=== PATIENT | female | born 1980 | race Two or more races ===

== ENCOUNTER → 2021-04-03 | Emergency (ER) | payer BC ==
[~2021-04-03] VITALS: Ht 167.6 cm; Wt 63.5 kg
[~2021-04-03] MED LIST: CEPH500C2 PO; CETI-90 PO; PRED50TA PO; predniSONE 20 MG TABLET ONE; predniSONE 50 MG TABLET PO ONE
[2021-04-03 12:23] VITALS: BP 110/69
--- NOTE | 2021-04-03 12:41 | NUR ---
SEEN AND EXAMINED BY .
--- NOTE | 2021-04-03 12:56 | NUR ---
Patient discharged to home in stable condition. Written and verbal after care instructions given. Patient verbalizes understanding of instruction.
--- NOTE | 2021-04-03 12:57 | NUR ---
[facility]
== END | disposition home or self-care (01) ==
LOC: ER 13:26
DX: T63.481A Toxic effect of venom of other arthropod, accidental (unintentional), initial encounter (principal); L50.9 Urticaria, unspecified; L03.115 Cellulitis of right lower limb; Y92.89 Other specified places as the place of occurrence of the external cause
CPT/HCPCS: 99283; J7512

== ENCOUNTER 2021-05-05 20:18 | Emergency (ER) | payer BC ==
[~2021-05-05] VITALS: Ht 170.2 cm; Wt 54.4 kg
[~2021-05-05 20:18] MED LIST changes: -predniSONE 20 MG TABLET ONE; -predniSONE 50 MG TABLET PO ONE
[2021-05-05] MEDS ORDERED: MECLIZINE HCL 25 MG TABLET ONE (20:57)
[2021-05-05] MEDS ORDERED: KETOROLAC TROMETHAMINE INJ 30 MG/ML VIAL ONE (20:57)
[2021-05-05] MEDS ORDERED: MECLIZINE HCL 12.5 MG TABLET PO ONE (21:00)
[2021-05-05] MEDS ORDERED: KETOROLAC TROMETHAMINE INJ 30 MG/ML VIAL IV ONE (21:00)
[2021-05-05] MEDS ORDERED: IV NS 0.9% 1,000 ML BAG IV ONE (21:00)
--- NOTE | 2021-05-05 21:00 | NUR ---
BLOOD TAKEN AND SENT TO LAB
[2021-05-05 21:40] LABS: BILIRUBIN,URINE NEGATIVE (NEGATIVE); COLOR,URINE YELLOW (YELLOW); LEUKOCYTE ESTERASE ,URINE TRACE (NEGATIVE); NITRITE, URINE NEGATIVE (NEGATIVE); PH,URINE 8.5 (5.0-8.0); PROTEIN,URINE NEGATIVE (NEGATIVE); UGLUCOSE NEGATIVE (NEGATIVE); UROBILINOGEN,URINE 0.2 EU/dL (0.2)
[2021-05-05 22:03] LABS: RBC,URINE 0-2 /HPF (0-2); WBC,URINE 0-2 /HPF (0-3)
[2021-05-05 22:04] LABS: BACTERIA,URINE Few /HPF (None Seen); SQUAMOUS EPITHELIAL CELL,UR Few /HPF (None Seen); URINE AMORPHOUS PHOSPHATES Few /HPF (None Seen)
[2021-05-05 22:15] LABS: BASOPHILS # (AUTO) 0.1 K/uL (0.0-0.2); BASOPHILS % (AUTO) 1.3 % (0.0-2.0); CALCIUM, SERUM 8.8 mg/dL (8.5-10.1); CARBON DIOXIDE 30 mmol/L (21-32); CHLORIDE 106 mmol/L (98-107); CREATININE 0.8 mg/dL (0.6-1.3); EOSINOPHILS % (AUTO) 1.7 % (0.0-6.0); GLUCOSE 87 mg/dL (74-106); HEMATOCRIT 39 % (33-45); HEMOGLOBIN 12.3 g/dL (11.5-14.8); LYMPHOCYTES # (AUTO) 2.1 K/uL (0.8-4.8); LYMPHOCYTES % (AUTO) 33.4 % (20.0-44.0); MEAN CORPUSCULAR HGB CONC 32 g/dl (31.0-36.0); MEAN CORPUSCULAR VOLUME 76 fL (82-100); MONOCYTES # (AUTO) 0.5 K/uL (0.1-1.30); MONOCYTES % (AUTO) 8.6 % (2.0-12.0); NEUTROPHILS # (AUTO) 3.4 K/uL (1.8-8.9); PLATELET COUNT (AUTO) 253 K/uL (150-450); POTASSIUM 4.2 mmol/L (3.5-5.1); RED BLOOD CELL COUNT(AUTO) 5.12 MIL/uL (4.0-5.2); SODIUM SERUM 143 mmol/L (136-145); UREA NITROGEN, BLOOD 12 mg/dL (7-18); WHITE BLOOD COUNT (AUTO) 6.2 K/uL (4.3-11.0)
[2021-05-05] MEDS ORDERED: MECL-159 PO (22:26)
[2021-05-05] MEDS ORDERED: IBUP-1955 PO (22:26)
[2021-05-05 22:30] LABS: ALANINE AMINOTRANSFERASE 25 U/L (12-78); ALBUMIN 3.9 g/dL (3.4-5.0); ALKALINE PHOSPHATASE 54 U/L (46-116); ASPARTATE AMINOTRANSFERASE 22 U/L (15-37); BILIRUBIN,DIRECT 0.1 mg/dL (0.0-0.2); BILIRUBIN,TOTAL 0.3 mg/dL (0.2-1.0); TOTAL PROTEIN, SERUM 7.4 g/dL (6.4-8.2)
--- NOTE | 2021-05-05 22:51 | NUR ---
Patient discharged to home in stable condition. Written and verbal after care instructions given. Patient verbalizes understanding of instruction.
[2021-05-05 22:52] VITALS: BP 138/70
== END 2021-05-05 22:51 | disposition home or self-care (01) ==
LOC: ER 20:18
DX: R42 Dizziness and giddiness (principal); R51.9 Headache, unspecified; Z79.899 Other long term (current) drug therapy
CPT/HCPCS: 36415; 71045; 80048; 80076; 81001; 84484; 84703; 85025; 85730; 93005; 96361; 96374; 99285; J1885; J7030; J8597

== ENCOUNTER 2021-09-23 19:21 | Emergency (ER) | payer BC, OTHER ==
[~2021-09-23] VITALS: Ht 165.1 cm; Wt 59.9 kg
[~2021-09-23 19:21] MED LIST changes: +IBUP-1955 PO; +MECL-159 PO
--- NOTE | 2021-09-23 19:56 | NUR ---
PT A/O X3, CAME IN FOR BILATERAL EAR PAIN X 1 DAY.
[2021-09-23 20:30] VITALS: BP 128/77
[2021-09-23] MEDS ORDERED: MECLIZINE HCL 12.5 MG TABLET PO ONE (20:30)
[2021-09-23] MEDS ORDERED: MECLIZINE HCL 12.5 MG TABLET ONE (20:35)
[2021-09-23] MEDS ORDERED: AMOX500T2 PO (20:38)
--- NOTE | 2021-09-23 20:50 | NUR ---
DISCHARGE INSTRUCTIONS GIVEN TO PT. PT LEFT IN STABLE CONDITION.
== END 2021-09-23 20:50 | disposition home or self-care (01) ==
LOC: ER 19:30
DX: H66.93 Otitis media, unspecified, bilateral (principal); Z60.2 Problems related to living alone; Z79.899 Other long term (current) drug therapy
CPT/HCPCS: 99283; J8597

== ENCOUNTER → 2021-11-15 | Emergency (ER) | payer OTHER ==
[~2021-11-15] VITALS: Ht 167.6 cm; Wt 56.7 kg
[~2021-11-15] MED LIST changes: +AMOX500T2 PO; +DIAZ2TAB PO; +KETOROLAC TROMETHAMINE INJ 30 MG/ML VIAL ONE
--- NOTE | 2021-11-15 09:05 | NUR ---
MD Patel at bedside
[2021-11-15] MEDS: KETOROLAC TROMETHAMINE INJ 60 MG/2 ML VIAL IM ONE ×2 (09:31→09:34)
--- NOTE | 2021-11-15 09:35 | NUR ---
X RAY AT BEDSIDE
[2021-11-15 10:14] VITALS: BP 130/73
== END | disposition home or self-care (01) ==
LOC: ER 09:00
DX: M62.838 Other muscle spasm (principal); Z60.2 Problems related to living alone; Z79.1 Long term (current) use of non-steroidal anti-inflammatories (NSAID); Z79.52 Long term (current) use of systemic steroids; Z79.899 Other long term (current) drug therapy
CPT/HCPCS: 73030; 96372; 99283; J1885

== ENCOUNTER 2024-12-20 14:15 | Emergency (ER) | payer MEDICAID, OTHER ==
[~2024-12-20] VITALS: Ht 170.2 cm; Wt 74.8 kg
[~2024-12-20 14:15] MED LIST changes: -KETOROLAC TROMETHAMINE INJ 30 MG/ML VIAL ONE
[2024-12-20 15:12] LABS: BASOPHILS # (AUTO) 0.1 K/uL (0.0-0.2); EOSINOPHILS % (AUTO) 0.5 % (0.0-6.0); HEMATOCRIT 44 % (33-45); HEMOGLOBIN 14.5 g/dL (11.5-14.8); LYMPHOCYTES # (AUTO) 1.7 K/uL (0.8-4.8); LYMPHOCYTES % (AUTO) 28.5 % (20.0-44.0); MEAN CORPUSCULAR HEMOGLOBIN 28 PG (26.0-33.0); MEAN CORPUSCULAR HGB CONC 33 g/dl (31.0-36.0); MEAN CORPUSCULAR VOLUME 83 fL (82-100); MONOCYTES # (AUTO) 0.3 K/uL (0.1-1.30); MONOCYTES % (AUTO) 5.9 % (2.0-12.0); NEUTROPHILS # (AUTO) 3.7 K/uL (1.8-8.9); NEUTROPHILS % (AUTO) 64.1 % (43.0-81.0); PLATELET COUNT (AUTO) 256 K/uL (150-450); RED BLOOD CELL COUNT(AUTO) 5.24 MIL/uL (4.0-5.2); RED CELL DISTRIBUTION WIDTH 13.7 % (11.5-15.0); WHITE BLOOD COUNT (AUTO) 5.8 K/uL (4.3-11.0)
[2024-12-20 15:20] LABS: CALCIUM, SERUM 9.9 mg/dL (8.5-10.1); CREATININE 0.6 mg/dL (0.6-1.3)
[2024-12-20 15:48] LABS: INR 1.02 (0.91-1.10); PARTIAL THROMBOPLASTIN TIME 25.7 SEC (24.3-34.3); PROTHROMBIN TIME 10.8 SECS (9.2-11.1)
[2024-12-20] MEDS ORDERED: AZIT500T4 PO (16:46)
[2024-12-20 16:59] VITALS: BP 130/84; TEMP 97.8; O2SAT 99
== END 2024-12-20 16:59 | disposition home or self-care (01) ==
LOC: ER 14:23
DX: J40 Bronchitis, not specified as acute or chronic (principal); R04.2 Hemoptysis; Z79.52 Long term (current) use of systemic steroids; Z60.2 Problems related to living alone; Z20.822 Contact with and (suspected) exposure to COVID-19
CPT/HCPCS: 99285; 71275; 71045; 87426; 85025; 80048; 36415; 85730; J7050; Q9967

== ENCOUNTER 2025-03-16 14:24 | Emergency (ER) | payer MEDICAID ==
[~2025-03-16] VITALS: Ht 170.2 cm; Wt 76.2 kg
[~2025-03-16 14:24] MED LIST changes: +AZIT500T4 PO
[2025-03-16] MEDS ORDERED: IBUP-1490 PO (15:16)
[2025-03-16] MEDS ORDERED: METH-647 PO (15:16)
[2025-03-16] MEDS ORDERED: KETOROLAC TROMETHAMINE 15 MG/ML VIAL ONE (15:23)
[2025-03-16] MEDS ORDERED: ACETAMINOPHEN ES 500 MG TABLET ONE (15:23)
[2025-03-16] MEDS: KETOROLAC TROMETHAMINE 15 MG/ML VIAL IM ONE (15:30)
[2025-03-16] MEDS: ACETAMINOPHEN ES 500 MG TABLET PO ONE (15:31)
[2025-03-16 15:33] VITALS: BP 120/70; TEMP 98.5; O2SAT 98
== END 2025-03-16 15:34 | disposition home or self-care (01) ==
LOC: ER 14:30
DX: M54.50 Low back pain, unspecified (principal); Z79.52 Long term (current) use of systemic steroids; Z60.2 Problems related to living alone
CPT/HCPCS: 99283; 96372; J1885

== ENCOUNTER 2025-04-11 12:07 | Emergency (ER) | payer MEDICAID ==
[~2025-04-11] VITALS: Ht 167.6 cm; Wt 71.2 kg
[~2025-04-11 12:07] MED LIST changes: +IBUP-1490 PO; +METH-647 PO
[2025-04-11] MEDS: IV NS 0.9% 1,000 ML BAG IV ONE (12:30)
[2025-04-11 13:00] LABS: PREGNANCY TEST URINE QUAL NEGATIVE (NEGATIVE)
[2025-04-11 13:01] LABS: CALCIUM, SERUM 9.6 mg/dL (8.5-10.1); CREATININE 0.7 mg/dL (0.6-1.3); SODIUM SERUM 140 mmol/L (136-145); UREA NITROGEN, BLOOD 12 mg/dL (7-18)
[2025-04-11 13:02] LABS: PLATELET COUNT (AUTO) 221 K/uL (150-450); RED BLOOD CELL COUNT(AUTO) 5.07 MIL/uL (4.0-5.2); RED CELL DISTRIBUTION WIDTH 14.1 % (11.5-15.0); WHITE BLOOD COUNT (AUTO) 5.4 K/uL (4.3-11.0)
[2025-04-11 13:06] LABS: INR 0.93 (0.91-1.10)
[2025-04-11] MEDS ORDERED: KETOROLAC TROMETHAMINE INJ 30 MG/ML VIAL ONE (13:06)
[2025-04-11] MEDS ORDERED: PROCHLORPERAZINE EDISYLATE 10 MG/2 ML VIAL ONE (13:06)
[2025-04-11] MEDS ORDERED: dexaMETHasone SOD PHOSPHATE 1 ML ONE (13:06)
[2025-04-11 13:07] LABS: ASPARTATE AMINOTRANSFERASE 22 U/L (15-37); TOTAL PROTEIN, SERUM 7.5 g/dL (6.4-8.2)
[2025-04-11] MEDS: PROCHLORPERAZINE EDISYLATE 10 MG/2 ML VIAL IVP ONE (13:15)
[2025-04-11] MEDS: KETOROLAC TROMETHAMINE INJ 30 MG/ML VIAL IV ONE (13:15)
[2025-04-11] MEDS: dexaMETHasone SOD PHOSPHATE 10 MG/ML VIAL IV ONE (13:15)
[2025-04-11] MEDS ORDERED: KETO10TA2 PO (14:24)
[2025-04-11] MEDS ORDERED: SUMA100T PO (14:24)
[2025-04-11] MEDS ORDERED: PROC-11 PO (14:24)
[2025-04-11 14:29] VITALS: BP 120/75; O2SAT 98
== END 2025-04-11 14:35 | disposition home or self-care (01) ==
LOC: ER 12:08
DX: R51.9 Headache, unspecified (principal); R55 Syncope and collapse; Z79.52 Long term (current) use of systemic steroids; R06.02 Shortness of breath; Z60.2 Problems related to living alone; Z79.899 Other long term (current) drug therapy
CPT/HCPCS: 99285; 96374; 70450; 96375; 71045; 96361; 93005; 85025; 80048; 80076; 84703; 36415; 84484; 85730; 83880; J1885; J0780; J1100; J7030